=== PATIENT | male | born 1950 | race Caucasian/White ===

== ENCOUNTER 2017-08-13 10:00 | Emergency (ER) | payer MEDICARE, BC ==
[2017-08-13 10:37] LABS: CHLORIDE,CL 107 mEq/L (98-106); SODIUM,NA 142 mEq/L (136-145)
--- NOTE | 2017-08-13 10:41 | EDM.PDOC ---
ED HPI GENERAL MEDICAL PROBLEM - General Chief Complaint: Neuro Symptoms/Deficits Stated Complaint: stroke symptoms Time Seen by Provider: 08/13/17 10:10 Source of Information: Reports: Patient, EMS, EMS Notes Reviewed History Limitations: Reports: Other (unable to understand speech) - History of Present Illness INITIAL COMMENTS - FREE TEXT/NARRATIVE: Was brought in by the ambulance as a passerbyer called for help. He had been out on his normal walk picking up cans and had only 1 can in his bag which was unusual. He had laid down by a rock and put his head on it. they were able to get him to stand up but noted that his right leg wasn't working right and he was dragging it. He was able to indicate that when he got up at 0600 this morning his speech was more garbled than before. He answers yes and no but not sure if they are appropriate. They noted right facial droop when smiling but not sure if that is from prior stroke. He denied having a headache or vision changes. Onset: Sudden Duration: Getting Worse Location: Reports: Lower Extremity, Right Past Medical History Neurological History: Reports: CVA Social & Family History - Tobacco Use Smoking Status *Q: Never Smoker ED ROS GENERAL - Review of Systems Review Of Systems: See Below Constitutional: Reports: Weakness. Denies: Fever HEENT: Reports: No Symptoms Respiratory: Reports: No Symptoms Cardiovascular: Reports: No Symptoms GI/Abdominal: Reports: No Symptoms : Reports: No Symptoms Skin: Reports: No Symptoms Neurological: Reports: Trouble Speaking, Difficulty Walking, Weakness, Change in Speech. Denies: Dizziness, Headache, Numbness, Tingling Psychiatric: Denies: Anxiety ED EXAM, NEURO - Physical Exam Exam: See Below Exam Limited By: Other (unable to understand speech.) General Appearance: Alert, No Apparent Distress Nose: Normal Inspection Throat/Mouth: Normal Inspection, Normal Oropharynx Head Exam: Atraumatic, Normocephalic Neck: Normal Inspection, Supple, Non-Tender Respiratory/Chest: No Respiratory Distress, Lungs Clear, Normal Breath Sounds Cardiovascular: Regular Rate, Rhythm, No Edema GI/Abdominal: Normal Bowel Sounds, Soft, Non-Tender (Male) Exam: Normal Inspection Neurological: Alert Extremities: Other (right sided lower extremity weakness noted.) Psychiatric: Other (unable to understand speech) Skin Exam: Warm, Dry, Intact Course - Vital Signs Last Recorded V/S: Last Vital Signs Temp 98.3 F 08/13/17 10:05 Pulse 94 08/13/17 10:40 Resp 16 08/13/17 10:40 BP 139/83 08/13/17 11:05 Pulse Ox 96 08/13/17 10:40 - Orders/Labs/Meds Orders: Active Orders 24 hr Category Date Time Status Head wo Cont [CT] Stat Exams 08/13/17 10:12 Taken Labs: Laboratory Tests 08/13/17 08/13/17 08/13/17 Range/Units 10:10 10:10 10:10 WBC 6.5 (5.0-10.0) 10^3/uL RBC 4.72 (4.50-6.00) 10^6/uL Hgb 14.0 (14.0-18.0) g/dL Hct 42.2 (40.0-54.0) % MCV 89.4 (82.0-94.0) fL MCH 29.7 (27.0-32.0) pg MCHC 33.2 (33.0-38.0) g/dL RDW Coeff of Pranay 13.8 (11.0-15.0) % Plt Count 149 L (150-400) 10^3/uL Neut % (Auto) 67.5 (35-85) % Lymph % (Auto) 17.4 (10-55) % [place] % (Auto) 8.8 (0-16) % Eos % (Auto) 5.5 H (0-5) % Baso % (Auto) 0.8 (0-3) % Neut # (Auto) 4.40 (1.80-7.00) 10^3/uL Lymph # (Auto) 1.13 (1.00-4.80) 10^3/uL [place] # (Auto) 0.57 (0.00-0.80) 10^3/uL Eos # (Auto) 0.36 (0.00-0.45) 10^3/uL Baso # (Auto) 0.05 10^3/uL PT 26.7 H (9.7-12.3) SEC INR 2.41 H (0.92-1.18) APTT 36.2 H (24.5-30.9) SEC Sodium 142 (136-145) mEq/L Potassium 3.9 (3.5-5.0) mEq/L Chloride 107 H (98-106) mEq/L Carbon Dioxide 25 (21-32) mmol/L BUN 18 (7-18) mg/dL Creatinine 1.5 H (0.7-1.3) mg/dL Est Cr Clr Drug Dosing TNP Estimated GFR (MDRD) 47 L (>=60) mL/min Glucose 151 H (75-99) mg/dL Calcium 9.0 (8.4-10.1) mg/dL Creatine Kinase 95 (35-232) U/L Troponin I 0.026 (0.00-0.06) ng/mL - Re-Assessments/Exams Free Text/Narrative Re-Assessment/Exam: 08/13/17 11:[address] results [address] Dr. Sanders radiology Free Text/Narrative Re-Assessment/Exam: 08/13/17 11:15 Sister Paola did arrive and states that he is at his normal baseline. His speech and walking are normal. He follow commands easily now. Not able to understand his speech but sister states that it is normal for him. Discussed that they do not want him sent out and he does not want any more done for him. Did discuss this with Dr. Keita his primary and he did agree that if he is back at his baseline that he can be discharged. Sister is in agreement and willing to take him home and he will stay with hertoday. Departure - Departure Time of Disposition: 11:31 Disposition: Home, Self-Care 01 Condition: Good Clinical Impression: TIA (transient ischemic attack) Qualifiers: Transient cerebral ischemia type: unspecified Qualified Code(s): G45.9 - Transient cerebral ischemic attack, unspecified - Discharge Information Forms: ED Department Discharge Additional Instructions: Stay with sister today to be monitored Return if any new symptoms occur - Problem List & Annotations (1) TIA (transient ischemic attack) SNOMED Code(s): 790994684, 645765445 Code(s): G45.9 - TRANSIENT CEREBRAL ISCHEMIC ATTACK, UNSPECIFIED Status: Acute Priority: High Qualifiers: Transient cerebral ischemia type: unspecified Qualified Code(s): G45.9 - Transient cerebral ischemic attack, unspecified - Problem List Review Problem List Initiated/Reviewed/Updated: Yes - My Orders Last 24 Hours: My Active Orders 08/13/17 10:12 Head wo Cont [CT] Stat - Assessment/Plan Last 24 Hours: My Active Orders 08/13/17 10:12 Head wo Cont [CT] Stat
== END 2017-08-13 11:55 | disposition home or self-care (01) ==
LOC: CC.ED 10:00
DX: G45.9 Transient cerebral ischemic attack, unspecified (principal); Z86.73 Personal history of transient ischemic attack (TIA), and cerebral infarction without residual deficits
CPT/HCPCS: 36415; 70450; 80048; 82550; 84484; 85025; 85610; 85730; 93005; 93010; 99284; 99285

== ENCOUNTER 2020-03-26 15:46 | Observation (INO) | payer MEDICARE, BC ==
--- NOTE | 2020-03-26 16:04 | EDM.PDOC ---
ED HPI GENERAL MEDICAL PROBLEM - General Stated Complaint: FALL Time Seen by Provider: 03/26/20 15:55 Source of Information: Reports: EMS History Limitations: Reports: No Limitations - History of Present Illness INITIAL COMMENTS - FREE TEXT/NARRATIVE: Dio is a 69 yo male who presents to the ED via [facility] after a witnessed fall on the sidewalk. A bystander reports he was stepping up onto the curb and tripped, hitting his face on the pavement. They do report approximate 20 second LOC. EMS was called. Patient presents with backboard and C-collar in place. He is difficult to understand as he has garbled speech from a previous stroke. This is reportedly his baseline. Denies any pain. Is alert and oriented. GCS 15. Does have laceration to his nose, as well as crooked appearance of his nose. Patient exposed, with no other obvious injuries. No tenderness to palpation throughout. He does take Coumadin, so trauma code initiated prior to patient's arrival. Was immediately taken to CT. Opted to proceed with CT head, max/facial, and C spine given mechanism of injury. Onset: Today, Sudden Location: Reports: Face Associated Symptoms: Denies: Confusion, Chest Pain, Cough, cough w sputum, Diaphoresis, Fever/Chills, Headaches, Loss of Appetite, Malaise, Nausea/Vomiting , Rash, Seizure, Shortness of Breath, Syncope, Weakness - Related Data Allergies Allergy/AdvReac Type Severity Reaction Status Date / Time RADIOGRAPHIC DYE Allergy Cannot Uncoded 03/26/20 16:50 Remember Home Meds: Home Meds Lisinopril 10 mg PO DAILY 08/13/17 [History] Multivitamin [Men's Multi-Vitamin] 1 each PO DAILY 08/13/17 [History] Simvastatin [Zocor] 40 mg PO BEDTIME 08/13/17 [History] Warfarin Sodium 4 mg PO DAILY 08/13/17 [History] Aspirin [Aspirin EC] 325 mg PO DAILY 03/26/20 [History] amLODIPine [Norvasc] 5 mg PO BEDTIME 03/26/20 [History] Past Medical History HEENT History: Reports: Impaired Vision Cardiovascular History: Reports: High Cholesterol, Hypertension Neurological History: Reports: CVA Social & Family History - Caffeine Use Caffeine Use: Reports: None Review of Systems - Review of Systems Review Of Systems: Unable To Obtain Reason Not Obtained: garbled speech ED EXAM, GENERAL - Physical Exam Exam: See Below Exam Limited By: No Limitations General Appearance: Alert, WD/WN, No Apparent Distress Eye Exam: Bilateral Eye: EOMI, Normal Fundi, Normal Inspection, PERRL Ears: Normal External Exam, Normal Canal, Hearing Grossly Normal, Normal TMs Nose: Nasal Tenderness, Nasal Deformity, Nasal Drainage (epistaxis ), Other (~ 1cm abrasion to nose) Throat/Mouth: Normal Inspection, Normal Gums, Normal Oropharynx, No Airway Compromise, Other (dried blood, dentures, small lac to upper lip) Head: Atraumatic, Normocephalic Neck: Normal Inspection, Supple, Non-Tender, Limited Range of Motion (chronic) Respiratory/Chest: No Respiratory Distress, Lungs Clear, Normal Breath Sounds, No Accessory Muscle Use, Chest Non-Tender Cardiovascular: Normal Peripheral Pulses, Regular Rate, Rhythm, No Edema, No Gallop, No JVD, No Murmur, No Rub GI/Abdominal: Normal Bowel Sounds, Soft, Non-Tender, No Organomegaly, No Distention, No Abnormal Bruit, No Mass, Pelvis Stable Back Exam: Normal Inspection, Full Range of Motion, NT Extremities: Normal Inspection, Normal Range of Motion, Non-Tender, Normal Capillary Refill, No Pedal Edema Neurological: Alert, CN II-XII Intact, No Motor/Sensory Deficits Psychiatric: Normal Affect, Normal Mood Skin Exam: Other (~1cm laceration to nose) Course - Vital Signs Last Recorded V/S: Last Vital Signs Temp 98.6 F 03/27/20 07:32 Pulse 85 03/27/20 07:32 Resp 18 03/27/20 07:32 BP 127/63 03/27/20 07:32 Pulse Ox 97 03/27/20 07:32 - Orders/Labs/Meds Orders: Medication Orders Acetaminophen (Tylenol) 650 mg PO Q4H PRN PRN Reason: Pain (Mild 1-3)/fever Amlodipine Besylate (Norvasc) 5 mg PO BEDTIME [facility] Last Admin: 03/26/20 20:15 Dose: 5 mg Aspirin (Aspirin) 325 mg PO BEDTIME [facility] Last Admin: 03/26/20 19:40 Dose: 325 mg Cholecalciferol (Vitamin D3) 25 mcg PO DAILY [facility] Last Admin: 03/27/20 07:23 Dose: 25 mcg Lisinopril (Prinivil) 10 mg PO DAILY [facility] Last Admin: 03/27/20 07:22 Dose: 10 mg Multivitamins/Minerals/Vitamin C (Tab-A-Eda) 1 tab PO DAILY [facility] Last Admin: 03/27/20 07:23 Dose: 1 tab Simvastatin (Zocor) 40 mg PO BEDTIME [facility] Last Admin: 03/26/20 19:40 Dose: 40 mg Sodium Chloride (Saline Flush) 10 ml FLUSH ASDIRECTED PRN PRN Reason: Keep Vein Open Warfarin Sodium (Coumadin) 4 mg PO DAILY@1200 [facility] Labs: Laboratory Tests 03/26/20 03/26/20 03/26/20 Range/Units 16:10 16:10 16:10 WBC 7.2 (5.0-10.0) 10^3/uL RBC 4.96 (4.50-6.00) 10^6/uL Hgb 14.3 (14.0-18.0) g/dL Hct 43.7 (40.0-54.0) % MCV 88.1 (82.0-94.0) fL MCH 28.8 (27.0-32.0) pg MCHC 32.7 L (33.0-38.0) g/dL RDW Coeff of Pranay 13.9 (11.0-15.0) % Plt Count 171 (150-400) 10^3/uL Neut % (Auto) 63.7 (35-85) % Lymph % (Auto) 23.7 (10-55) % [place] % (Auto) 7.9 (0-16) % Eos % (Auto) 4.0 (0-5) % Baso % (Auto) 0.7 (0-3) % Neut # (Auto) 4.59 (1.80-7.00) 10^3/uL Lymph # (Auto) 1.71 (1.00-4.80) 10^3/uL [place] # (Auto) 0.57 (0.00-0.80) 10^3/uL Eos # (Auto) 0.29 (0.00-0.45) 10^3/uL Baso # (Auto) 0.05 10^3/uL PT 27.4 H (9.7-12.3) SEC INR 2.74 H (0.92-1.18) Sodium 146 H (136-145) mEq/L Potassium 3.7 (3.5-5.0) mEq/L Chloride 109 H (98-106) mEq/L Carbon Dioxide 27 (21-32) mmol/L BUN 19 H (7-18) mg/dL Creatinine 1.7 H (0.7-1.3) mg/dL Est Cr Clr Drug Dosing TNP Estimated GFR (MDRD) 40 L (>=60) mL/min Glucose 116 H (75-99) mg/dL Lactic Acid (0.4-2.0) mmol/L Calcium 9.5 (8.4-10.1) mg/dL Total Bilirubin 0.5 (0.0-1.0) mg/dL AST 21 (15-37) U/L ALT 24 (12-78) U/L Alkaline Phosphatase 72 (46-116) U/L Total Protein 7.6 (6.4-8.2) g/dL Albumin 3.6 (3.4-5.0) g/dL 03/26/20 Range/Units 16:10 WBC (5.0-10.0) 10^3/uL RBC (4.50-6.00) 10^6/uL Hgb (14.0-18.0) g/dL Hct (40.0-54.0) % MCV (82.0-94.0) fL MCH (27.0-32.0) pg MCHC (33.0-38.0) g/dL RDW Coeff of Pranay (11.0-15.0) % Plt Count (150-400) 10^3/uL Neut % (Auto) (35-85) % Lymph % (Auto) (10-55) % [place] % (Auto) (0-16) % Eos % (Auto) (0-5) % Baso % (Auto) (0-3) % Neut # (Auto) (1.80-7.00) 10^3/uL Lymph # (Auto) (1.00-4.80) 10^3/uL [place] # (Auto) (0.00-0.80) 10^3/uL Eos # (Auto) (0.00-0.45) 10^3/uL Baso # (Auto) 10^3/uL PT (9.7-12.3) SEC INR (0.92-1.18) Sodium (136-145) mEq/L Potassium (3.5-5.0) mEq/L Chloride (98-106) mEq/L Carbon Dioxide (21-32) mmol/L BUN (7-18) mg/dL Creatinine (0.7-1.3) mg/dL Est Cr Clr Drug Dosing Estimated GFR (MDRD) (>=60) mL/min Glucose (75-99) mg/dL Lactic Acid 2.1 H (0.4-2.0) mmol/L Calcium (8.4-10.1) mg/dL Total Bilirubin (0.0-1.0) mg/dL AST (15-37) U/L ALT (12-78) U/L Alkaline Phosphatase (46-116) U/L Total Protein (6.4-8.2) g/dL Albumin (3.4-5.0) g/dL Meds: Medications Generic Name Dose Route Start Last Admin Trade Name Freq PRN Reason Stop Dose Admin Acetaminophen 650 mg 03/26/20 18:36 Tylenol PO Q4H PRN Pain (Mild 1-3)/fever Amlodipine Besylate 5 mg 03/26/20 20:00 03/26/20 20:15 Norvasc PO 5 mg BEDTIME [facility] Administration Aspirin 325 mg 03/26/20 20:00 03/26/20 19:40 Aspirin PO 325 mg BEDTIME [facility] Administration Cholecalciferol 25 mcg 03/27/20 08:00 03/27/20 07:23 Vitamin D3 PO 25 mcg DAILY [facility] Administration Lisinopril 10 mg 03/27/20 08:00 03/27/20 07:22 Prinivil PO 10 mg DAILY [facility] Administration Multivitamins/Minerals/Vitamin C 1 tab 03/27/20 08:00 03/27/20 07:23 Tab-A-Eda PO 1 tab DAILY [facility] Administration Simvastatin 40 mg 03/26/20 20:00 03/26/20 19:40 Zocor PO 40 mg BEDTIME [facility] Administration Sodium Chloride 10 ml 03/26/20 18:36 Saline Flush FLUSH ASDIRECTED PRN Keep Vein Open Warfarin Sodium 4 mg 03/27/20 12:00 Coumadin PO DAILY@1200 [facility] - Radiology Interpretation Free Text/Narrative:: Head and CSpine negative for acute changes. Facial scan does show bilateral nasal bone fracture, age indeterminant. CT Results Date: 03/26/20 CT Results Time: 16:54 - Re-Assessments/Exams Free Text/Narrative Re-Assessment/Exam: Patient presented to ED via [facility] with C-collar and backboard in place. Had obvious dried blood to face as well as deformity noted to nose. Per EMS, fall from ground level was witnessed by one of their members. Did report a brief LOC. Patient was able to get up from scene and was then brought to ED. They did find card in his wallet reporting Coumadin use so all necessary precautions were taken and hospital staff was notified prior to arrival, initiating trauma code. Upon arrival to ED, patient was taken to CT. Opted to proceed with head, neck and facial CT. Patient was alert and conversant. Denies any pain. He is breathing without difficulty and Cspine collar in place. Breath sounds are clear throughout. O2 sats stable on RA. Patient was exposed, with jacket being cut. Skin is warm and dry. Skin intact except 1 cm abrasion noted to nose. No further bleeding noted. Face covered with dried blood. Neuro exam intact at baseline. GCS 15. PERRLA. Does have hx eye surgery. Vital signs stable. Patient has no obvious injury to chest or pelvis. Was ambulatory on scene. Pelvis is stable without evidence of pain. No pain with tenderness to chest wall. Fall was from ground level. No chest or pelvis films indicated. Departure - Departure Time of Disposition: 17:23 Disposition: Refer to Observation Condition: Fair Clinical Impression: Concussion with brief (less than one hour) loss of consciousness Laceration of nose Qualifiers: Encounter type: initial encounter Qualified Code(s): S01.21XA - Laceration without foreign body of nose, initial encounter Fall Qualifiers: Encounter type: initial encounter Qualified Code(s): W19.XXXA - Unspecified fall, initial encounter Fractured nasal bones Qualifiers: Encounter type: initial encounter Fracture type: closed Qualified Code(s): S02.2XXA - Fracture of nasal bones, initial encounter for closed fracture - Discharge Information *PRESCRIPTION DRUG MONITORING PROGRAM REVIEWED*: Not Applicable *COPY OF PRESCRIPTION DRUG MONITORING REPORT IN [place]: Not Applicable Sepsis Event Note - Focused Exam Date Exam was Performed: 03/27/20 Time Exam was Performed: 07:44 - Problem List & Annotations (1) Concussion with brief (less than one hour) loss of consciousness SNOMED Code(s): 362951797, 143517009 Code(s): S06.0X9A - CONCUSSION W LOSS OF CONSCIOUSNESS OF UNSP DURATION, INIT Status: Acute Current Visit: No (2) Fall SNOMED Code(s): 4506810, 696991320 Code(s): W19.XXXA - UNSPECIFIED FALL, INITIAL ENCOUNTER Status: Acute Current Visit: No Qualifiers: Encounter type: initial encounter Qualified Code(s): W19.XXXA - Unspecified fall, initial encounter (3) Fractured nasal bones SNOMED Code(s): 345783735 Code(s): S02.2XXA - FRACTURE OF NASAL BONES, INIT ENCNTR FOR CLOSED FRACTURE Status: Acute Current Visit: No Qualifiers: Encounter type: initial encounter Fracture type: closed Qualified Code(s) : S02.2XXA - Fracture of nasal bones, initial encounter for closed fracture (4) Laceration of nose SNOMED Code(s): 899475461 Code(s): S01.21XA - LACERATION WITHOUT FOREIGN BODY OF NOSE, INITIAL ENCOUNTER Status: Acute Current Visit: No Qualifiers: Encounter type: initial encounter Qualified Code(s): S01.21XA - Laceration without foreign body of nose, initial encounter - Problem List Review Problem List Initiated/Reviewed/Updated: Yes - Assessment/Plan Admission H&P: Please use this note as an admission H&P Plan: Patient presented to ED via [facility] following a witnessed fall on the pavement with brief LOC. GCS 15 upon arrival. GCS remained 15 throughout ED visit. Did proceed with CT head, c-spine, and maxio/facial. CT head and C-spine negative for acute findings. Facial CT does reveal bilateral nasal bone fractures, age indeterminant. C-collar removed once radiology results obtained. Labs all stable at baseline. No chest/pelvis imaging indicated. No tenderness to chest wall. Pelvis stable on exam without pain. Vital signs stable throughout ED stay. Patient continued to deny pain throughout ED stay. Vital signs remained stable. Patient will be admitted observation for continued neuro checks. Anticipate discharge in am. Dr. Keita notified of admission.
[2020-03-26 16:39] LABS: CHLORIDE,CL 109 mEq/L (98-106); SODIUM,NA 146 mEq/L (136-145)
[2020-03-26] MEDS ORDERED: Acetaminophen 325 MG Tab PO PRN (18:36)
[2020-03-26] MEDS ORDERED: Sodium Chloride 0.9% 10 ML Syringe FLUSH PRN (18:36)
[2020-03-26] MEDS: Aspirin 325 MG Tab PO SCH (19:40)
[2020-03-26] MEDS ORDERED: amLODIPine 2.5 MG Tab PO SCH (20:00)
[2020-03-26] MEDS ORDERED: Simvastatin 40 MG Tab PO SCH (20:00)
[2020-03-27] MEDS: Cholecalciferol (Vitamin D3) 25 MCG Tab PO SCH (07:23)
[2020-03-27] MEDS: Multivitamin Tab PO SCH (07:23)
[2020-03-27] MEDS ORDERED: Lisinopril 10 MG Tab PO SCH ×2 (08:00→19:15)
--- NOTE | 2020-03-27 10:39 | PN ---
DATE: 03/27/2020 S: Mr. Cabello is a 69-year-old male with history of prior cerebrovascular accident. He is currently anticoagulated for chronic atrial fibrillation, treated for hypertension and hyperlipidemia. He lives at home alone. He is disabled to a degree with some hemiparesis. He had a witnessed fall by a member of the [facility]. He was brought to our facility for his fall. He landed on the front of his face. He is on Coumadin. His INR was 2.7. CT of the head and neck was negative for any significant injury. The patient was admitted for observation. Up to this point, the patient's neuro checks have been stable. He has not had any vital sign irregularities. O: GENERAL: When I examined him today, he is pleasant, alert, and cooperative. Appears in no distress. Vocalizes and understands questions. Has a very poor speech which is chronic. HEENT: Grossly benign. NECK: Supple. His veins are flat. LUNGS: Sounds are clear. CARDIAC: Tones irregular, but controlled. EXTREMITIES: No peripheral edema. NEUROLOGIC: He does not have any gross neurologic deficits outside of his baseline. ASSESSMENT: 1. FALL WITH APPARENT CONCUSSION. 2. CHRONIC ANTICOAGULATION SECONDARY TO ATRIAL FIBRILLATION. 3. NASAL BONE FRACTURE, CLOSED. P: We will have PT work with him today, make sure his neuro checks remain stable and I expect him to do well and go home in the morning. YASHIRA/DENICE /[id number]
[2020-03-27] MEDS: Warfarin 2 MG Tab PO SCH (11:24)
[2020-03-27] MEDS ORDERED: Diphtheria,Pertussis(Acell),Tetanus Vaccine 0.5 ML Syringe IM ONE (18:30)
[2020-03-27] MEDS ORDERED: Simvastatin 40 MG Tab PO SCH (19:14)
[2020-03-27] MEDS: Aspirin 325 MG Tab PO SCH (19:24)
[2020-03-27] MEDS ORDERED: amLODIPine 5 MG Tab PO SCH (20:00)
[2020-03-28] MEDS: Cholecalciferol (Vitamin D3) 25 MCG Tab PO SCH (07:31)
[2020-03-28] MEDS: Multivitamin Tab PO SCH (07:31)
[2020-03-28] MEDS: Warfarin 2 MG Tab PO SCH (13:29)
--- NOTE | 2020-03-28 15:34 | DISCH ---
ADMISSION DIAGNOSES: 1. Fall with closed head injury/concussion. 2. Prior cerebrovascular accident with hemiparesis. 3. Chronic anticoagulation secondary to atrial fibrillation. 4. Nasal bone fracture, nondisplaced and closed. DISCHARGE DIAGNOSIS: 1. FALL WITH CLOSED HEAD INJURY/CONCUSSION. 2. PRIOR CEREBROVASCULAR ACCIDENT WITH HEMIPARESIS. 3. CHRONIC ANTICOAGULATION SECONDARY TO ATRIAL FIBRILLATION. 4. NASAL BONE FRACTURE, NONDISPLACED AND CLOSED. HISTORY: On the date of admission, the patient was out in front of his apartment and fell. Local ambulance provider saw this and brought him to our emergency room. I believe trauma code was called due to his use of Coumadin and head injury. He apparently had some confusion afterward and was diagnosed with concussion. A CT of the head was negative and neuro checks were stable at that time. He is difficult to interview as he has [id number] speech due to his prior stroke. He does appear to understand conversation. His INR was therapeutic at 2.7 on admit. He was admitted for observation. HOSPITAL COURSE: The patient has done well since here. He has had no change in his neuro status. No signs of any progression of his concussive symptoms. He has been alert, oriented, does engage in conversation, albeit hard to understand. His lab work has been stable. He has had physical therapy to improve strengthening and ambulation. We will send him home on home health for ongoing strengthening, vital sign monitoring, and monitoring of neuro status. He is given much help at his home from family, most notably his sister. Make no medication changes during his stay and he will have routine followup on a p.r.n. basis. COMPLICATIONS: During stay were none. CONSULTATIONS: PT. DISPOSITION: Discharged home with home health. LIZANDRO /[id number]
== END 2020-03-28 12:40 | disposition home health service (06) ==
LOC: CC.ED 15:46 → UNDOADMOB 17:30 → CC.MS 17:30 → CC.ED 17:30 → CC.MS 17:35
PROVIDERS: ADMIT Nurse Practitioner Family; ATTEND Family Medicine
DX: S06.0X1A Concussion with loss of consciousness of 30 minutes or less, initial encounter (principal); S02.2XXA Fracture of nasal bones, initial encounter for closed fracture; I48.20 Chronic atrial fibrillation, unspecified; Z23 Encounter for immunization; I10 Essential (primary) hypertension; E78.00 Pure hypercholesterolemia, unspecified; I69.359 Hemiplegia and hemiparesis following cerebral infarction affecting unspecified side; E78.5 Hyperlipidemia, unspecified; Z79.01 Long term (current) use of anticoagulants; W01.0XXA Fall on same level from slipping, tripping and stumbling without subsequent striking against object, initial encounter
CPT/HCPCS: 36415; 70450; 70486; 72125; 80053; 81001; 83605; 85025; 85610; 90471; 90715; 97161; 99285; A9270; G0378; 93005; 93010; 99217; 99220; 99225

== ENCOUNTER 2024-11-01 09:57 | Inpatient (IN) | payer MEDICARE, BC ==
[2024-11-01] MEDS: Albuterol/Ipratropium 3.0-0.5 MG/3 ML Neb Soln NEB ONE (10:20)
[2024-11-01 10:27] LABS: BASOPHILS ABSOLUTE AUTO 0.01 10^3/uL (0.00-0.50); HEMOGLOBIN 13.6 g/dL (14.0-18.0); IMMATURE GRAN ABSOLUTE AUTO 0.05 10^3/uL (0.00-0.49); IMMATURE GRAN PERCENT AUTO 0.2 % (0.0-4.9); LYMPHOCYTES ABSOLUTE AUTO 0.95 10^3/uL (0.60-5.00); LYMPHOCYTES PERCENT AUTO 4.6 % (24-44); MEAN CORPUSCULAR HEMOGLOBIN 28.8 pg (27.0-32.0); MEAN CORPUSCULAR HGB CONC 32.4 g/dL (32.0-36.0); MONOCYTES ABSOLUTE AUTO 1.44 10^3/uL (0.00-1.50); NEUTROPHILS ABSOLUTE AUTO 18.01 x10^3/uL (1.80-8.00); NEUTROPHILS PERCENT AUTO 88.2 % (41-71); PLATELET COUNT,PLT 188 10^3/uL (150-400); RED BLOOD CELL COUNT 4.72 x10^6/uL (4.50-6.00)
[2024-11-01 10:32] LABS: WHITE BLOOD CELL COUNT,WBC 20.5 10^3/uL (4.0-11.0)
[2024-11-01 10:37] LABS: INR 3.78 (0.92-1.18); PROTHROMBIN TIME 37.3 SEC (9.3-11.3)
[2024-11-01] MEDS: Piperacillin/Tazobactam 4.5 GM in Sodium Chloride 0.9% 100 ML IV ONE (10:44)
[2024-11-01 10:50] LABS: ALBUMIN 3.5 g/dL (3.4-5.0); BILIRUBIN TOTAL 0.9 mg/dL (0.0-1.0); C-REACTIVE PROTEIN 3.16 mg/dL (<=0.50); CALCIUM 9.7 mg/dL (8.4-10.1); CREATININE 2.5 mg/dL (0.7-1.3); EST CRCL DRUG DOSING (CG) 25.96 mL/min; MAGNESIUM 2.3 mg/dL (1.8-2.4); POTASSIUM,K 4.6 mEq/L (3.5-5.0); PROTEIN TOTAL,TP 7.4 g/dL (6.4-8.2)
[2024-11-01] MEDS: Furosemide 40 MG/4 ML VIAL IVPUSH ONE (11:36)
[2024-11-01] MEDS ORDERED: Ondansetron 4 MG/2 ML SDV IV PRN (13:14)
[2024-11-01] MEDS ORDERED: Acetaminophen 325 MG Tab PO PRN (13:14)
[2024-11-01] MEDS ORDERED: [UNRECOGNIZED DRUG - REMARK] SCH (13:14)
[2024-11-01] MEDS ORDERED: Albuterol 0.083% 2.5 MG/3 ML Neb Soln NEB PRN (13:14)
[2024-11-01] MEDS ORDERED: Docusate Sodium 100 MG Cap PO PRN (13:14)
[2024-11-01] MEDS ORDERED: Polyethylene Glycol 3350 Powder 17 GM Packet PO PRN (13:14)
[2024-11-01] MEDS: Sodium Chloride 0.9% 1,000 ML IV SCH (14:20)
[2024-11-01] MEDS: Piperacillin/Tazobactam 4.5 GM in Sodium Chloride 0.9% 100 ML IV SCH (14:29)
[2024-11-01] MEDS: Albuterol/Ipratropium 3.0-0.5 MG/3 ML Neb Soln NEB SCH (14:29)
[2024-11-01] MEDS: LORazepam 2 MG/ML SDV IVPUSH PRN (20:06)
[2024-11-01] MEDS: Morphine 2 MG/ML SYRINGE IVPUSH PRN (23:09)
[2024-11-02] MEDS: Furosemide 40 MG/4 ML VIAL IVPUSH SCH (07:52)
[2024-11-02] MEDS ORDERED: Multivitamin Tab PO SCH (08:00)
[2024-11-02] MEDS ORDERED: WARFARIN SODIUM 4 MG PO SCH (08:00)
[2024-11-02] MEDS: Ondansetron 4 MG Tab.DIS PO PRN (09:21)
[2024-11-02] MEDS: Morphine 4 MG/ML VIAL IVPUSH SCH (19:56)
== END 2024-11-04 09:36 | disposition swing bed (61) | DRG 871 ==
LOC: CC.ED 09:57 → UNDOADMIN 10:45 → CC.MS 10:45 → UNDOADMIN 12:04 → CC.MS 12:04
PROVIDERS: ADMIT Nurse Practitioner; ATTEND Nurse Practitioner
DX: I50.9 Heart failure, unspecified (principal); A41.9 Sepsis, unspecified organism; I21.4 Non-ST elevation (NSTEMI) myocardial infarction; J18.9 Pneumonia, unspecified organism; E87.20 Acidosis, unspecified; R79.89 Other specified abnormal findings of blood chemistry; N17.9 Acute kidney failure, unspecified; I10 Essential (primary) hypertension; H26.9 Unspecified cataract; Z91.048 Other nonmedicinal substance allergy status; H54.7 Unspecified visual loss; E78.00 Pure hypercholesterolemia, unspecified; N40.0 Benign prostatic hyperplasia without lower urinary tract symptoms; D72.829 Elevated white blood cell count, unspecified; I11.0 Hypertensive heart disease with heart failure; Z51.5 Encounter for palliative care; Z86.73 Personal history of transient ischemic attack (TIA), and cerebral infarction without residual deficits; Z91.041 Radiographic dye allergy status; Z79.01 Long term (current) use of anticoagulants; Z79.02 Long term (current) use of antithrombotics/antiplatelets; Z79.899 Other long term (current) drug therapy; Z98.49 Cataract extraction status, unspecified eye
CPT/HCPCS: 36415; 51701; 51702; 71046; 80053; 83605; 83735; 83880; 84484; 85025; 85610; 86140; 87040; 87428-QW; 93005; 93010; 94640; 99223; 99232; 99233; 99239; 99285; A9270-GY; J1940; J2060; J2270; J2543; J3490; J7030; J7620-GY

== ENCOUNTER 2024-11-04 09:48 | Inpatient (IN) | payer MEDICARE, BC ==
[2024-11-04] MEDS ORDERED: Polyethylene Glycol 3350 Powder 17 GM Packet PO PRN (09:52)
[2024-11-04] MEDS ORDERED: Albuterol 0.083% 2.5 MG/3 ML Neb Soln NEB PRN (09:52)
[2024-11-04] MEDS ORDERED: Ondansetron 4 MG/2 ML SDV IV PRN (09:52)
[2024-11-04] MEDS ORDERED: Acetaminophen 325 MG Tab PO PRN (09:52)
[2024-11-04] MEDS ORDERED: Ondansetron 4 MG Tab.DIS PO PRN (09:52)
[2024-11-04] MEDS ORDERED: Docusate Sodium 100 MG Cap PO PRN (09:52)
[2024-11-04] MEDS: Morphine 2 MG/ML SYRINGE IVPUSH PRN (12:52)
[2024-11-04] MEDS: Morphine 4 MG/ML VIAL IVPUSH SCH (19:31)
[2024-11-04] MEDS: Bisacodyl 10 MG Supp RECTAL ONE (23:14)
[2024-11-05] MEDS: LORazepam 2 MG/ML SDV IVPUSH PRN (01:18)
[2024-11-05] MEDS: Furosemide 40 MG/4 ML VIAL IVPUSH SCH (10:50)
[2024-11-06] MEDS: Glycopyrrolate 0.2 MG/ML SDV IVPUSH ONE (05:24)
[2024-11-06] MEDS: Atropine 1% Ophth Soln 5 ML Bottle SL PRN (09:08)
[2024-11-06] MEDS: Atropine 1% Ophth Soln 5 ML Bottle SL SCH (10:17)
== END 2024-11-06 11:20 | disposition expired | DRG 951 ==
LOC: UNDOADMIN 09:48 → CC.MS 09:48
PROVIDERS: ADMIT Physician Assistant Medical; ATTEND Physician Assistant Medical
DX: Z51.5 Encounter for palliative care (principal); I21.4 Non-ST elevation (NSTEMI) myocardial infarction; J18.9 Pneumonia, unspecified organism; E87.20 Acidosis, unspecified; E66.9 Obesity, unspecified; Z86.73 Personal history of transient ischemic attack (TIA), and cerebral infarction without residual deficits; Z79.01 Long term (current) use of anticoagulants; Z79.02 Long term (current) use of antithrombotics/antiplatelets; Z79.899 Other long term (current) drug therapy; Z68.32 Body mass index [BMI] 32.0-32.9, adult
CPT/HCPCS: 51702; A9270-GY; J1596; J2060; J2270